=== PATIENT | female | born 1980 | race Caucasian/White ===

== ENCOUNTER → 2016-11-10 | Outpatient (CLI) | payer OTHER ==
--- NOTE | 2016-11-10 12:41 | US ---
Complete Pelvic Sonography (Transabdominal and Endovaginal) Clinical History: 36-year-old female with heavy menstrual periods, having bled from October 22 through November 07, 2016 with painful menses, bloating, and infertility. The patient is 0. ICD-10 Diagnostic Code: N90.6. Technique: A curvilinear 5 MHz transducer was used to sonographically evaluate the pelvis, using a f ull urinary bladder as a window. To better assess the uterine architecture and the adnexal structures , endovaginal pelvic sonography was also performed. Color and spectral Doppler were used. Comparison study: Pelvic sonography, dated February 16, 2014. Findings: Transabdominal Pelvic Sonography: The uterus is normal in size, shape, and position, measuring 8.6 x 3.2 x 4.9 cm. There is some mild thickening of the fundal endometrium, which will be better assessed endovaginally. There is no focal myometrial abnormality. The right and left ovaries are identified, and appear normal. The left ovary measures 1.3 x 2.5 x 2.4 cm (with intraovarian vascular flow docume nted, and an RI of 0.68), and the right ovary contains a small follicular cyst, which will be better assessed endovaginally. Endovaginal Pelvic Sonography: The endometrial thickness measures 5.7 mm; however, there appears to be an oval-shaped hyperechoic structure in the fundal portion of the endometrium seen on images 29-34 measuring 0.9 x 0.4 x 1.1 cm. With color Doppler, there appears to be some vascularity, suggesting t hat this could represent a small endometrial polyp. This could be further evaluated with hysterosonog diana, or directed hysteroscopy. There is no a focal myometrial abnormality. The right ovary measures 2.0 x 1.6 x 3.0 cm, and there are 3 adjacent anechoic follicles with no associated hyperemia of the intervening briseno of the follicles. The resistive index in the right ovary is 0.52. The left adnexal region is obscured by bowel gas. There is a small amount of free fluid in the pelvic cul-de-sac. Impression: 1. There is a 0.9 x 0.4 x 1.1 cm smoothly-contoured echogenic oval-shaped structure in the fundal end ometrium with some vascularity, suggestive of a polyp. This could be further evaluated with hysteroso nography or directed hysteroscopy, as clinically directed. 2. Normal appearance of the ovaries with some small follicles associated with the right ovary. There is no evidence of torsion, although there is a small amount of free fluid in the pelvic cul-de-sac.
== END ==
LOC: FIMAGING 08:53
PROVIDERS: ATTEND Physician Assistant
DX: R93.8 Abnormal findings on diagnostic imaging of other specified body structures (principal); N92.6 Irregular menstruation, unspecified

== ENCOUNTER 2016-12-21 10:11 | Day surgery (SDC) | payer OTHER ==
[~2016-12-21 10:11] MED LIST: BUPIVACAINE 0.5% 30 ML SDV ONE; SILVER NITRATE APPLICATOR 1 APPL TP ONE
[2016-12-21] MEDS ORDERED: MIDAZOLAM 2 MG/2 ML VIAL ONE (14:01)
[2016-12-21] MEDS ORDERED: PROPOFOL 200 MG/20 ML VIAL ONE (14:03)
[2016-12-21] MEDS ORDERED: fentaNYL 100 MCG/2 ML INJ ONE ×3 (14:03→16:29)
[2016-12-21] MEDS ORDERED: DEXAMETHASONE 4 MG/ML VIAL ONE (14:23)
[2016-12-21] MEDS ORDERED: ONDANSETRON 4 MG/2 ML VIAL ONE (14:24)
[2016-12-21] MEDS ORDERED: LIDOCAINE 2% 5 ML SDV ONE (14:24)
[2016-12-21] MEDS ORDERED: ROCURONIUM 50 MG/5 ML VIAL ONE ×2 (14:24→14:40)
[2016-12-21] MEDS ORDERED: SUGAMMADEX SODIUM 200 MG/2 ML VIAL IVP ONE (15:01)
[2016-12-21] MEDS ORDERED: KETOROLAC 30 MG/1 ML SDV ONE (15:50)
[2016-12-21] MEDS ORDERED: SKIN ADHESIVE (DERMABOND) 1 EACH TP ONE (15:51)
[2016-12-21] MEDS ORDERED: HYDROCODONE/APAP 5/325 TAB PO PRN (16:37)
[2016-12-21] MEDS ORDERED: ONDANSETRON 4 MG/2 ML VIAL IVP PRN (16:39)
[2016-12-21] MEDS ORDERED: LR 1,000 ML IV SCH (17:00)
[2016-12-21] MEDS ORDERED: HYDROCODONE/APAP 5/325 TAB ONE (17:23)
--- NOTE | 2016-12-21 19:19 | GOP ---
[f rep st] OPERATIVE REPORT DATE OF OPERATION: SURGEON: Kandis Castellon MD CORPORATE SALES REPRESENTATIVE: Char Rojas M.D. ANESTHESIA: General with ET tube. ANESTHESIOLOGIST: Dr. Solares. PREOPERATIVE DIAGNOSIS: 1. Intermenstrual spotting with evidence of uterine polyp on ultrasound. 2. Presumed endometriosis. 3. Infertility. POSTOPERATIVE DIAGNOSIS: 1. Intermenstrual spotting with evidence of uterine polyp on ultrasound. 2. Presumed endometriosis. 3. Infertility. PROCEDURE PERFORMED: 1. Diagnostic hysteroscopy. 2. Dilation and curettage. 3. Polypectomy. 4. Diagnostic laparoscopy, resection and ablation of endometriosis. FINDINGS: Three intrauterine polyps; 1 posteriorly in the body of the uterus and bilateral polyps at the cornua which were all resected. A normal intrauterine cavity was noted after resection of all polyps and completion of the D and C. Intra-abdominally, we noted endometriosis implants anteriorly at the base of the uterus near the bladder flap and at the edge of the left round ligament creating scar tissue and tacking the uterus to the left sidewall. Additionally there were 3 endometrial implants in the ovarian fossa on the right. There were more extensive implants with powder burn scars in the cul-de- sac on the left attaching to the left sigmoid colon, and there were additional implants on the left edge of the uterine corpus posteriorly. SPECIMENS: Endometrial implant from right ovarian fossa. ESTIMATED BLOOD LOSS: Minimal. DESCRIPTION OF PROCEDURE: The patient was brought to the operating room and her name, identity and procedure were all confirmed. She was placed under general anesthesia with an ET tube. She was prepped and draped in a normal sterile fashion in dorsal lithotomy position with Caleb stirrups. A Dockery catheter was placed. A final time-out was performed. The speculum was placed and the uterus was grasped anteriorly with a single tooth tenaculum. The cervix was dilated to 5 mm. The 5 mm hysteroscope was introduced with the above findings noted. The Truclear polyp handpiece was introduced, and all of the polyps were resected. A D and C was then performed, and all the tissue was sent to pathology. Instruments were removed and hemostasis was noted. Gowns and gloves were changed. We then went to the abdomen, where 0.25% Marcaine was injected into the umbilicus. A 5 mm incision was made. The skin was lifted and a Veress needle was inserted. The opening pressure was found to be 2 mmHg. The abdomen was insufflated to 15 mmHg. A 5 mm 0 degree camera was placed under direct visualization. Two lateral 5 mm ports were placed. The findings were as noted above. One 1x1 cm endometrial implant in the right posterior broad ligament was resected and sent to pathology. The remainder of the endometrial implants were burned using monopolar cautery. However, the implant overlying the left sigmoid colon was left alone due to its proximity to the bowel, and there was 1 small implant overlying the right ureter in the right posterior broad ligament/ovarian fossa, and that was also not resected or cauterized due to its proximity to this vital structure. Hemostasis was noted at this time. Extensive irrigation was performed. All instruments were removed and gas was removed from the abdomen. The incisions were closed with 4- 0 Monocryl and then covered with Dermabond. The patient was awakened in good condition and brought to the PACU. FLUIDS: 500 mL. URINE OUTPUT: 50 mL. FLUID DEFICIT: 250 mL of normal saline. COMPLICATIONS: None. /[id number]/MODL MTDD
== END 2016-12-21 18:30 | disposition home or self-care (01) ==
LOC: FSGY 10:11
PROVIDERS: ATTEND Obstetrics & Gynecology
PROC: 0U594ZZ Destruction of Uterus, Percutaneous Endoscopic Approach (ICD-10-PCS; principal; 2016-12-21 11:45)
PROC: 0UB44ZX Excision of Uterine Supporting Structure, Percutaneous Endoscopic Approach, Diagnostic (ICD-10-PCS; principal; 2016-12-21 11:45)
PROC: 0UDB8ZX Extraction of Endometrium, Via Natural or Artificial Opening Endoscopic, Diagnostic (ICD-10-PCS; principal; 2016-12-21 11:45)
DX: N80.9 Endometriosis, unspecified (principal); N84.0 Polyp of corpus uteri; N97.9 Female infertility, unspecified
CPT/HCPCS: 58100; 58558; C1782; J1100; J1885; J2250; J2405; J2704; J3010